=== PATIENT | male | born 1960 | race Caucasian/White ===

== ENCOUNTER 2020-08-30 05:18 | Day surgery (SDC) | payer OTHER, MEDICAID ==
[~2020-08-30] VITALS: Ht 198.1 cm; Wt 93.7 kg
[~2020-08-30 05:18] MED LIST: NONE PER PT
[2020-08-30 05:58] VITALS: BP 127/74
[2020-08-30] MEDS ORDERED: CHLORHEXIDINE 15 ML UDC PO ONE (06:00)
[2020-08-30] MEDS ORDERED: LIDOCAINE-MPF 1%, 5ML ONE (06:00)
[2020-08-30] MEDS ORDERED: BUPIVACAINE/PF 0.5% ONE (06:00)
[2020-08-30] MEDS ORDERED: LACTATED RINGERS 1,000 ML IV SCH (06:00)
[2020-08-30] MEDS ORDERED: MIDAZOLAM 1 MG/ML, 2ML ONE (06:35)
[2020-08-30] MEDS ORDERED: FENTANYL PF 250 MCG/5ML ONE (06:36)
[2020-08-30] MEDS ORDERED: ONDANSETRON 2MG/ML, 2ML ONE (07:12)
[2020-08-30] MEDS ORDERED: DEXAMETHASONE 4 MG/ML, 5ML ONE (07:12)
[2020-08-30] MEDS ORDERED: EPHEDRINE 50 MG/ML, 1ML ONE (07:16)
[2020-08-30] MEDS ORDERED: AMPICILLIN/SULBACTAM 3 GM in SODIUM CHLORIDE 0.9% 100 ML IV ONE (07:17)
[2020-08-30] MEDS ORDERED: VANCOMYCIN 1,000 MG ONE (07:19)
[2020-08-30] MEDS ORDERED: PROMETHAZINE 25 MG/ML, 1ML IVPush PRN (07:30)
[2020-08-30] MEDS ORDERED: hydrALAzine 20 MG/ML, 1ML IV PRN (07:30)
[2020-08-30] MEDS ORDERED: LABETALOL 5MG/ML, 20ML IV PRN (07:30)
[2020-08-30] MEDS ORDERED: HYDROmorphone 1 MG/ML, 1ML INJ IVPush PRN (07:30)
[2020-08-30] MEDS ORDERED: ONDANSETRON 2MG/ML, 2ML IVPush PRN (07:30)
[2020-08-30] MEDS ORDERED: FENTANYL PF 100 MCG/2ML IV PRN (07:30)
[2020-08-30] MEDS ORDERED: OXYcodone 5 MG/5 ML ORAL.SOL UDC PO PRN (07:30)
[2020-08-30] MEDS ORDERED: ACETAMINOPHEN 325 MG TABLET PO PRN (07:30)
[2020-08-30] MEDS ORDERED: PROPOFOL 10 MG/ML, 20ML ONE (07:48)
[2020-08-30] MEDS ORDERED: CEFAZOLIN 1,000 MG ONE ×2 (07:48)
== END 2020-08-30 10:35 | disposition home or self-care (01) ==
LOC: OUT 05:18
PROVIDERS: ATTEND Orthopaedic Surgery
DX: I73.9 Peripheral vascular disease, unspecified (principal); L97.419 Non-pressure chronic ulcer of right heel and midfoot with unspecified severity; G89.18 Other acute postprocedural pain; J44.9 Chronic obstructive pulmonary disease, unspecified; Z20.822 Contact with and (suspected) exposure to COVID-19; Z79.899 Other long term (current) drug therapy; Z87.891 Personal history of nicotine dependence
CPT/HCPCS: 27687; 28810; 64445; 64447; 93005; J0295; J0690; J1100; J2250; J2405; J2704; J3010; J3370; J7120; U0003